=== PATIENT | male | born 1940 | race Caucasian/White ===

== ENCOUNTER 2017-03-09 01:44 | Emergency (ER) | payer OTHER, MEDICARE ==
[~2017-03-09] VITALS: Ht 175.3 cm; Wt 86.4 kg
[~2017-03-09 01:44] MED LIST: ASPI-973 PO; GABA-502 PO; HYDR25TA4 PO; LISI-567 PO; PRAM1TAB5 PO; TADA5TAB2 PO
[2017-03-09 01:47] VITALS: BP 105/54; PULSE 76; RESP 16; O2SAT 100
--- NOTE | 2017-03-09 01:48 | ED.REPORT ---
HPI-Facial Injury Date of Service Mar 09, 2017 ED Provider: Dr. Rogers Pt is a 76 y/o male w/ a hx of HTN presenting to the ED due to facial injury after a ground level fall which occurred prior to arrival. The patient didn't get much sleep last night and today was using a chainsaw and weed-eater all day today. Tonight, he began to experience leg cramping while in his kitchen leading to instability which caused him to fall and hit his mouth area on the ground. He lost a frontal tooth. There was no alcohol use. Pt denies change in LOC, neck pain. He takes aspirin daily and no anticoagulants. Nursing Notes Stated Complaint: FALL,NOSE BLEED Chief Complaint: Head, Face, Neck Trauma Nursing Notes Reviewed: Yes Allergies: Coded Allergies: No Known Allergies (Unverified , 08/15/16) Scheduled Aspirin (Aspirin) 81 Mg Tablet 81 MG PO DAILY Hydrochlorothiazide (Hydrochlorothiazide) 25 Mg Tablet 25 MG PO DAILY Lisinopril (Lisinopril) 20 Mg Tablet 20 MG PO DAILY Scheduled PRN Gabapentin (Gabapentin) 300 Mg Capsule 300 MG PO HS PRN PRN Insomnia Pramipexole Dihydrochloride (Pramipexole Dihydrochloride) 1 Mg Tablet 1 MG PO HS PRN PRN restless leg syndrome Tadalafil (Cialis) 5 Mg Tablet 5 MG PO PRN PRN PRN erectile dysfunction As directed by physician. General Time Seen by Provider: 01:50 Chief Complaint Traumatic injury Hx Obtained From: Patient Arrived By: Walk-in Onset Occurred: Just prior to arrival Symptom Duration: Since onset Progression Since Onset: Constant Caused by: Blunt trauma, Fall Location: : Mouth Quality: Painful Severity: Current: Mild Severity: Maximum: Moderate Recent Healthcare: No recent hospitalization Similar Sx Previous: No Past Medical History Past Medical History Hypertension Restless leg syndrome Erectile dysfunction Insomnia Past Surgical History Hernia repair Tonsillectomy Cataracts Squamos cell carcinoma removal Smoking History Unknown if Ever Smoker Social History Alcohol Use: Denies alcohol use Drug Use: Denies drug use Occupation [employer] Ambulatory Status Independent Review of Systems Constitutional: Denies: Chills, Fever Ears / Nose / Throat: Reports: Mouth pain Neurologic: Denies: Change LOC, Focal weakness, Headache, Numbness, Syncope Complete sys rev & neg: except as marked. Hematologic: Reports Bleeding Physical Exam Initial Vital Signs Vital Signs (First) Date Time Temp Pulse Resp B/P Pulse Ox O2 Delivery O2 Flow Rate FiO2 03/09/17 01:47 76 16 105/54 100 Room Air Initial VS: Reviewed, Vital signs normal Respiratory: Breath sounds normal, Clear to auscultation, No respiratory distress Cardiovascular: Regular rate & rhythm, Heart sounds normal, Intact distal pulses Abdomen / GI: Soft, No distention Extremities: Vascular intact, Neuro intact, No swelling Skin: Warm, Dry, No cyanosis Psychiatric: Mood/affect normal, Behavior normal, Normal thought content Head / Eyes: Atraumatic, Normocephalic, PERRL, EOMI ENT: Airway patent, Mucous membranes moist, Pharynx NL Abrasion on nose without swelling or deformity Swelling of both lips Superficial lacerations no inside of both lips - not requiring sutures Lower teeth are normal No tenderness about lower jaw From upper teeth - 1 fractured tooth and remaining 3 teeth are tilted back 15 degrees and were moved forward by me Neck: Atraumatic, Supple, No meningismus, Full range of motion, No swelling, Non-tender, No midline vertebral tend Neurologic: Oriented X3, Speech NL, No motor deficits, Memory NL Interpretation & Diagnostics ECG Interpretation Time: 02:48 Interpreted by: ED physician Normal ECG Interpretation: Normal ECG w/ rate of... (70), Normal rate, Normal sinus rhythm, No acute ischemic changes, Normal QRS, Normal axis, Normal intervals, Adequate tracing X-Ray Interpretation Xray Interpretation: Fractured frontal incisor. No significant maxillary ridge fracture noted. No facial fractures noted. Official radiologist read pending for ~07:00 Study Performed: Face Interpretation / Wet Read by: Wet read ED physician Procedures Procedure Notes: 02:30 - Quick procedure Patient verbally consents Front teeth were initially tilted back with an angle of 15 degrees due to trauma. These were moved back to a neutral position and are tested for stability and are all still firmly attached No complications, tolerated well. Re-Eval/Medical Decision Med Decision/Clinical Course 76-year-old male who became dehydrated and exhausted from being out in the heat. He fell on his face on the hardwood floor, sustaining injuries to his teeth and lips. There was no loss of consciousness. He does not know whether he fully syncopized or not. He does not want IV, blood work, or IV rehydration. He has a fracture of his frontal incisor. The surrounding incisors are tilted back in about 15 angle. These were moved forward to a more neutral position. This seems solid and should not require an arch bar to maintain stability at this point. They are not at risk for falling out while sleeping. X-ray shows no definite displaced fractures of the area. He is being discharged home. Ice packs, elevation, ibuprofen and Tylenol as needed. Re-Evaluation/Progress : Time of Eval: 02:26 Evaluation: Mental status normal, Neurologic nonfocal Re-Evaluation/Progress Note: Pt rechecked. Discussed imaging findings. He is declining IV fluids and further labs at this point. Only further workup he would like is EKG. Informed pt of plan for treatment. Pt understands and agrees with plan for treatment. F/U instructions and RTER warnings given. All questions addressed. Counseled Regarding: Diagnosis, Need for follow-up, When/why to return to ED Discharge & Departure Impression: Primary Impression: Fracture of incisor teeth Encounter type: initial encounter Fracture type: closed Qualified Code: S02.5XXA - Fracture of tooth (traumatic), initial encounter for closed fracture Additional Impression: Fall from ground level Disposition: Home Discharge Condition All VS Reviewed: Yes Condition: Improved Patient Instructions: Acute Dental Trauma (ED) Additional Instructions: Your upper frontal incisors were pushed back by the trauma. I was not able to move them forward closer to their natural position. He will need further dental evaluation and treatment. Call your dentist first thing in the morning. Drink plenty of fluids. Tylenol and/or ibuprofen as needed for pain. The very careful with heat and sun exposure for the next couple days and try to stay adequately hydrated. Referrals: Seth Matt MD (PCP) Scribe Attestation Portions of this note were transcribed by Joseph Us. I, Dr. Rogers personally performed the history, physical exam and medical decision-making; I reviewed and confirmed the accuracy of the information in the transcribed note. Signed by Destiny Hatfield, 03/09/17199 copies to: Seth Matt MD, Howard L MD Mar 09, 2017 01:48 JOSEPH US Mar 09, 2017 01:56
[2017-03-09 03:24] VITALS: BP 118/69; PULSE 75; RESP 16; O2SAT 98
--- NOTE | 2017-03-09 09:04 | DRSVH ---
PROCEDURE: X-RAY FACIAL BONES COMPLETE, MINIMUM THREE VIEWS ([id number]) INDICATIONS: facial trauma TECHNIQUE: 3 views of the facial bones were acquired. COMPARISON: None. FINDINGS: Sinuses: Visualized sinuses demonstrate no air-fluid levels or mucosal thickening. Bones: There is probable mildly displaced fracture of the anterior nasal spine. No other definite di splaced fractures. No suspicious bony lesions. Orbital rims and zygomatic arches appear intact. Soft tissues: No suspicious soft tissue densities. IMPRESSION: 1. Mildly displaced fracture of the anterior nasal spine of the maxilla. 2. If clinical concern persists for additional fractures, consider further evaluation with CT. Dictated by: Kavon Bridges M.D. on 03/09/2017 at 8:59 Approved by: Kavon Bridges M.D. on 03/09/2017 at 9:03
== END 2017-03-09 03:26 | disposition home or self-care (01) ==
LOC: SED 01:44
DX: S02.5XXA Fracture of tooth (traumatic), initial encounter for closed fracture (principal); S00.31XA Abrasion of nose, initial encounter; S00.501A Unspecified superficial injury of lip, initial encounter; W18.30XA Fall on same level, unspecified, initial encounter; Y92.000 Kitchen of unspecified non-institutional (private) residence as the place of occurrence of the external cause; Y93.89 Activity, other specified; Y99.8 Other external cause status; I10 Essential (primary) hypertension; Z79.82 Long term (current) use of aspirin